=== PATIENT | male | born 1940 | race Caucasian/White ===

== ENCOUNTER → 2017-07-19 | Outpatient (CLI) | payer MEDICARE, OTHER ==
[~2017-07-19] MED LIST: ALBU90OI61 INH; ASPI81CH PO; ATOR40TA PO; Calcium Magnes1 EACH PO; DOCU100 PO; FISH1000 PO; FLUSAL1005 INH; FURO20 PO; LEVO750 PO; LISI20 PO; MAGAMI PO; METO25 PO; MULVIT PO; PANT20 PO; POTCHL20ER PO; PRED20 PO; ROBITUSSIN COU237 ML PO; TOCO400 PO; Tylophen500 MG PO; Vitamin C100 M1 PO; WARF5 PO
== END | disposition home or self-care (01) ==
LOC: PLD 13:25 → LAB SHORT 13:25
DX: D48.5 Neoplasm of uncertain behavior of skin (principal)
CPT/HCPCS: 88304

== ENCOUNTER 2017-12-30 22:32 | Observation (INO) | payer OTHER, MEDICARE ==
[~2017-12-30] VITALS: Ht 182.9 cm; Wt 77.4 kg
[~2017-12-30 22:32] MED LIST changes: -DOCU100 PO; -LEVO750 PO; -POTCHL20ER PO; -PRED20 PO; -ROBITUSSIN COU237 ML PO
[2017-12-30] MEDS ORDERED: POTCHL20ER PO (22:57)
[2017-12-30 23:31] LABS: BASOPHILS ABSOLUTE AUTO 0.04 K/mm3 (0.00-0.23); BASOPHILS PERCENT AUTO 0 % (0-2); EOSINOPHILS ABSOLUTE AUTO 0.02 K/mm3 (0.00-0.68); EOSINOPHILS PERCENT AUTO 0 % (0-6); Hematocrit 44.1 % (37.0-53.0); Hemoglobin 14.9 g/dL (13.5-17.5); IMMATURE GRAN ABSOLUTE AUTO 0.03 K/mm3 (0.00-0.10); IMMATURE GRAN PERCENT AUTO 0 % (0-1); LYMPHOCYTES ABSOLUTE AUTO 0.75 K/mm3 (0.84-5.20); LYMPHOCYTES PERCENT AUTO 5 % (21-46); MONOCYTES ABSOLUTE AUTO 0.95 K/mm3 (0.16-1.47); MONOCYTES PERCENT AUTO 6 % (4-13); Mean Corpuscular HGB 30.3 pg (26.0-34.0); Mean Corpuscular HGB Conc 33.8 g/dL (31.5-36.5); Mean Corpuscular Volume 90 fL (80-100); Mean Platelet Volume 10.1 fL (9.1-12.4); NEUTROPHILS ABSOLUTE AUTO 13.92 K/mm3 (1.96-9.15); NEUTROPHILS PERCENT AUTO 89 % (41-73); Platelet Count 261 K/mm3 (150-400); RDW Coefficient Variation 13.3 % (11.7-14.2); RDW Standard Deviation 43.5 fL (35.1-46.3); Red Blood Cell Count 4.91 M/mm3 (4.30-5.90); White Blood Cell Count 15.71 K/mm3 (4.00-11.30)
[2017-12-30 23:44] LABS: International Normalized Ratio 2.56
[2017-12-30 23:45] LABS: Anion Gap 10 mmol/L (6-16); Blood Urea Nitrogen 24 mg/dL (8-24); Bun/Creatinine Ratio 25.8 (12.0-20.0); CO2, Blood 21 mmol/L (21-32); Calcium, Blood 8.6 mg/dL (8.5-10.1); Chloride, Blood 108 mmol/L (98-108); Creatinine, Blood 0.93 mg/dL (0.60-1.20); Glomerular Filtration Rate >60 (60-); Glucose, Blood 111 mg/dL (70-99); Potassium, Blood 4.5 mmol/L (3.5-5.5); Sodium, Blood 139 mmol/L (136-145); Troponin I <0.015 ng/mL (0.000-0.040)
[2017-12-30 23:46] LABS: PCO2 Arterial 29.7 mmHg (35-45); PO2 Arterial 54.8 mmHg (80-100); pH Blood Arterial 7.47 (7.35-7.45)
[2017-12-31 01:43] LABS: International Normalized Ratio 2.54; Prothrombin Time Results 24.8 Sec (9.7-11.5)
[2017-12-31 03:46] LABS: Hematocrit 43.2 % (37.0-53.0); Hemoglobin 14.5 g/dL (13.5-17.5); Mean Corpuscular HGB 29.8 pg (26.0-34.0); Mean Corpuscular HGB Conc 33.6 g/dL (31.5-36.5); Mean Corpuscular Volume 89 fL (80-100); Mean Platelet Volume 10.1 fL (9.1-12.4); Platelet Count 247 K/mm3 (150-400); RDW Coefficient Variation 13.5 % (11.7-14.2); RDW Standard Deviation 43.6 fL (35.1-46.3); Red Blood Cell Count 4.86 M/mm3 (4.30-5.90); White Blood Cell Count 16.48 K/mm3 (4.00-11.30)
[2017-12-31 04:12] LABS: Alanine Aminotransfer (ALT/SGP 20 U/L (12-78); Albumin, Blood 3.6 g/dL (3.4-5.0); Albumin/Globulin Ratio 0.9 (0.8-1.8); Alk Phos 35 U/L (50-136); Anion Gap 9 mmol/L (6-16); Aspartate Aminotrans (AST/SGOT 22 U/L (12-37); Bilirubin, Total 1.7 mg/dL (0.1-1.0); Blood Urea Nitrogen 24 mg/dL (8-24); Bun/Creatinine Ratio 23.1 (12.0-20.0); CO2, Blood 24 mmol/L (21-32); Calcium, Blood 8.5 mg/dL (8.5-10.1); Chloride, Blood 106 mmol/L (98-108); Creatinine, Blood 1.04 mg/dL (0.60-1.20); Globulin, Blood 4.1 g/dL (2.2-4.0); Glomerular Filtration Rate >60 (60-); Glucose, Blood 122 mg/dL (70-99); Potassium, Blood 3.9 mmol/L (3.5-5.5); Sodium, Blood 139 mmol/L (136-145); Total Protein, Blood 7.7 g/dL (6.4-8.2)
[2018-01-01 04:01] LABS: International Normalized Ratio 1.61; Prothrombin Time Results 16.1 Sec (9.7-11.5)
[2018-01-01] MEDS ORDERED: ROBITUSSIN COU237 ML PO (11:12)
[2018-01-01] MEDS ORDERED: LEVO750 PO (11:13)
[2018-01-01] MEDS ORDERED: DOCU100 PO (11:14)
[2018-01-01] MEDS ORDERED: PRED20 PO (11:18)
== END 2018-01-01 11:50 | disposition home or self-care (01) ==
LOC: ER 22:32 → PCU 22:33 → ER 12-31 01:10 → PCU 12-31 01:10
PROVIDERS: Emergency Medicine; Internal Medicine
PROC: 5A09357 Assistance with Respiratory Ventilation, Less than 24 Consecutive Hours, Continuous Positive Airway Pressure (ICD-10-PCS; principal; 2017-12-31)
DX: J18.9 Pneumonia, unspecified organism (principal); J96.21 Acute and chronic respiratory failure with hypoxia; J44.0 Chronic obstructive pulmonary disease with (acute) lower respiratory infection; R04.2 Hemoptysis; R59.0 Localized enlarged lymph nodes; I48.91 Unspecified atrial fibrillation; I50.9 Heart failure, unspecified; Z79.899 Other long term (current) drug therapy; Z79.01 Long term (current) use of anticoagulants; Z95.3 Presence of xenogenic heart valve; Z79.51 Long term (current) use of inhaled steroids; Z87.891 Personal history of nicotine dependence; Z86.73 Personal history of transient ischemic attack (TIA), and cerebral infarction without residual deficits
CPT/HCPCS: 36415; 36600; 71045; 71260; 80048; 80053; 82803; 83605; 83880; 84145; 84484; 85025; 85027; 85610; 87040; 87070; 87205; 93005; 93010; 94640; 94762; 96361; 96374; 96375; 99285; C9113; G0378; J0696; J1940; J1956; J2543; J2930; J7030; Q9967

== ENCOUNTER 2018-01-08 15:54 | Emergency (ER) | payer MEDICARE, OTHER ==
[~2018-01-08 15:54] MED LIST changes: +DOCU100 PO; +LEVO750 PO; +POTCHL20ER PO; +PRED20 PO; +ROBITUSSIN COU237 ML PO
== END 2018-01-08 16:43 | disposition left against medical advice (07) ==
LOC: ER 15:54
DX: Z53.21 Procedure and treatment not carried out due to patient leaving prior to being seen by health care provider (principal)

== ENCOUNTER 2019-05-07 20:12 | Inpatient (IN) | payer MEDICARE, OTHER ==
[~2019-05-07] VITALS: Ht 182.9 cm; Wt 74.6 kg
[~2019-05-07 20:12] MED LIST changes: +Advair Hfa 115-12 GM INH; +Alph-E-Mixed400 UNIT PO; -FISH1000 PO; +Fish Oil Conc1000 MG PO; +MULTI VITAMIN1 EACH PO; -MULVIT PO; -TOCO400 PO
[2019-05-07 20:59] LABS: BASOPHILS ABSOLUTE AUTO 0.02 K/mm3 (0.00-0.23); BASOPHILS PERCENT AUTO 0 % (0-2); EOSINOPHILS ABSOLUTE AUTO 0.03 K/mm3 (0.00-0.68); EOSINOPHILS PERCENT AUTO 0 % (0-6); Hematocrit 46.2 % (37.0-53.0); Hemoglobin 15.4 g/dL (13.5-17.5); IMMATURE GRAN ABSOLUTE AUTO 0.04 K/mm3 (0.00-0.10); IMMATURE GRAN PERCENT AUTO 0 % (0-1); LYMPHOCYTES ABSOLUTE AUTO 0.81 K/mm3 (0.84-5.20); LYMPHOCYTES PERCENT AUTO 7 % (21-46); MONOCYTES ABSOLUTE AUTO 1.56 K/mm3 (0.16-1.47); MONOCYTES PERCENT AUTO 13 % (4-13); Mean Corpuscular HGB 30.2 pg (26.0-34.0); Mean Corpuscular HGB Conc 33.3 g/dL (31.5-36.5); Mean Corpuscular Volume 91 fL (80-100); Mean Platelet Volume 10.3 fL (9.1-12.4); NEUTROPHILS ABSOLUTE AUTO 10.01 K/mm3 (1.96-9.15); NEUTROPHILS PERCENT AUTO 80 % (41-73); Platelet Count 197 K/mm3 (150-400); RDW Coefficient Variation 13.2 % (11.7-14.2); White Blood Cell Count 12.47 K/mm3 (4.00-11.30)
[2019-05-07 21:12] LABS: Influenza A Negative (NEGATIVE); Influenza B Negative (NEGATIVE)
[2019-05-07 21:21] LABS: Alanine Aminotransfer (ALT/SGP 21 U/L (12-78); Albumin, Blood 3.4 g/dL (3.4-5.0); Albumin/Globulin Ratio 0.7 (0.8-1.8); Alk Phos 39 U/L (50-136); Anion Gap 9 mmol/L (6-16); Aspartate Aminotrans (AST/SGOT 24 U/L (12-37); Bilirubin, Total 0.9 mg/dL (0.1-1.0); Blood Urea Nitrogen 33 mg/dL (8-24); Bun/Creatinine Ratio 26.2 (12.0-20.0); CO2, Blood 22 mmol/L (21-32); Calcium, Blood 8.8 mg/dL (8.5-10.1); Chloride, Blood 107 mmol/L (98-108); Creatinine, Blood 1.26 mg/dL (0.60-1.20); Globulin, Blood 4.6 g/dL (2.2-4.0); Glomerular Filtration Rate 59 (60-); Glucose, Blood 143 mg/dL (70-99); Potassium, Blood 4.5 mmol/L (3.5-5.5); Sodium, Blood 138 mmol/L (136-145); Troponin I <0.015 ng/mL (0.000-0.040)
[2019-05-07] MEDS ORDERED: WARF1 PO (21:43)
[2019-05-07] MEDS ORDERED: FURO20 PO ×2 (21:45)
[2019-05-07] MEDS ORDERED: POTCHL20ER PO (21:46)
[2019-05-07 22:49] LABS: International Normalized Ratio 2.04; Prothrombin Time Results 20.3 Sec (9.7-11.5)
--- NOTE | 2019-05-08 05:05 | NUR ---
RECEIVED CALL FROM TELEMETRY STATING PATIENT HEART RATE TACHY 120S. OBSERVED PATIENT STANDING ON SIDE OF BED USING THE URINAL. PATIENT SHOB WITH LABORED BREATHING. AUSCULTATED LUNGS AND DISCOVERED THE PATIENT TO SOUND WET WITH EXP. WHEEZE. SPOKE TO RESPIRATORY THERAPY AND REQUESTED BREATHING TREATMENT. PATIENT THEN REQUIRED 15L O2 BIPAP FOR SPO2 OF 96%. CALLED RAPID RESPONSE. PATIENTS RESP RATE IN THE 50S. SPOKE TO DR AND RECEIVED ORDER FOR LASIX AND TO MOVE PATIENT TO ICU ON BIPAP. LASIX GIVEN AND PATIENT MOVED TO ICU. CALLED PATIENTS LAUREN AND UPDATED HER ON PATIENTS CHANGE IN STATUS AND MOVE TO ICU.
[2019-05-08 05:21] LABS: Hematocrit 45.4 % (37.0-53.0); Hemoglobin 14.8 g/dL (13.5-17.5); Mean Corpuscular HGB 30.1 pg (26.0-34.0); Mean Corpuscular HGB Conc 32.6 g/dL (31.5-36.5); Mean Corpuscular Volume 93 fL (80-100); Mean Platelet Volume 10.1 fL (9.1-12.4); Platelet Count 185 K/mm3 (150-400); RDW Coefficient Variation 13.4 % (11.7-14.2); RDW Standard Deviation 45.9 fL (35.1-46.3); Red Blood Cell Count 4.91 M/mm3 (4.30-5.90); White Blood Cell Count 12.82 K/mm3 (4.00-11.30)
[2019-05-08 05:36] LABS: Source, Urine Catheter
[2019-05-08 05:38] LABS: International Normalized Ratio 2.28; Prothrombin Time Results 22.4 Sec (9.7-11.5)
[2019-05-08 05:38] LABS: Appearance, Urine Clear (Clear); Bilirubin, Urine Neg (Neg); Blood, Urine 1+ (Neg); Color, Urine Yellow (P-Yellow); Glucose Qualitative, Urine Neg (Neg); Ketones, Urine Neg (Neg); Leukocyte Esterase, Urine Neg (Neg); Nitrite, Urine Neg (Neg); Protein, Urine Neg (Neg); Specific Gravity, Urine 1.015 (1.003-1.022); Urobilinogen, Urine NORM (Normal)
--- NOTE | 2019-05-08 05:41 | NUR ---
TRANSFER TO ICU PT ARRIVED TO ICU 13 VIA BED AT 0445 VIA MEDICAL FLOOR BED. PT ARRIVES AWAKE, ALERT, AND ORIENTED. PT ON BIPAP 10/5, FIO2 40%. PT RECIEVED LASIX 60 MG IV PRIOR TO ARRIVAL. DISLA PLACED AT THIS TIME PER ORDER. UA SENT. LARGE AMOUNT OF CLEAR YELLOW URINE NOTED. LS DIMINISHED IN BASES. PT DENIES SOB AT THIS TIME. VITAL SIGNS STABLE AT THIS TIME, HR 90-100'S. IV'S SALINE LOCKED. PT WITH DRIED STOOL NOTED TO BUTTOCKS UPON ARRIVAL. PT STATES NORMALLY CONTINENT OF STOOL AND URINE AT HOME. PT SPOUSE CALLED AND UPDATED OF PT TRANSFER TO ICU. WILL CONTINUE TO MONITOR AND REPORT OFF TO ONCOMING RN.
[2019-05-08 05:44] LABS: Bacteria Rare /hpf; Red Blood Cells, Urine 0-2 /hpf (0-2); Squamous Epithelial Cells Not Seen /hpf (Few); White Blood Cells, Urine 0-2 /hpf (0-5)
--- NOTE | 2019-05-08 07:05 | NUR ---
REPORT AND BEDSIDE ROUNDING WITH JAN CHUNG. ASSUMED PT CARE. PT LYING IN POSITION OF COMFORT. BIPAP IN PLACE, PT TOLERATING WELL. PT WAKES WHEN SPOKEN TO. DENIES PAIN OR IMMEDIATE NEEDS.
[2019-05-08 07:20] LABS: Anion Gap 7 mmol/L (6-16); Blood Urea Nitrogen 29 mg/dL (8-24); Bun/Creatinine Ratio 27.6 (12.0-20.0); CO2, Blood 23 mmol/L (21-32); Chloride, Blood 109 mmol/L (98-108); Creatinine, Blood 1.05 mg/dL (0.60-1.20); Glomerular Filtration Rate >60 (60-); Glucose, Blood 166 mg/dL (70-99); Potassium, Blood 4.6 mmol/L (3.5-5.5); Sodium, Blood 139 mmol/L (136-145)
[2019-05-08 07:21] LABS: Calcium, Blood 8.2 mg/dL (8.5-10.1)
--- NOTE | 2019-05-08 07:30 | NUR ---
PT PLACED ON 5L NC AT THIS TIME. RESP THERAPIST NOHELIA TO ROOM FOR NEB. PT DANIELA WELL.
[2019-05-08 07:55] LABS: Adenovirus Not Detected (NOT DETECT); Bordetella pertussis Not Detected (NOT DETECT); Chlamydophila pneumoniae Not Detected (NOT DETECT); Coronavirus 229E Not Detected (NOT DETECT); Coronavirus HKU1 Not Detected (NOT DETECT); Coronavirus NL63 Not Detected (NOT DETECT); Coronavirus OC43 Not Detected (NOT DETECT); Human Metapneumovirus Not Detected (NOT DETECT); Human Rhinovirus/Enterovirus Not Detected (NOT DETECT); Influenza A Not Detected (NOT DETECT); Influenza A/2009-H1 Not Detected (NOT DETECT); Influenza A/H1 Not Detected (NOT DETECT); Influenza A/H3 Not Detected (NOT DETECT); Influenza B Not Detected (NOT DETECT); Mycoplasma pneumoniae Not Detected (NOT DETECT); Parainfluenza Virus 1 Not Detected (NOT DETECT); Parainfluenza Virus 2 Not Detected (NOT DETECT); Parainfluenza Virus 3 Not Detected (NOT DETECT); Parainfluenza Virus 4 Not Detected (NOT DETECT); Respiratory Syncytial Virus Not Detected (NOT DETECT)
--- NOTE | 2019-05-08 08:00 | NUR ---
ASSESSMENT CHARTED. PT ABLE TO WALK TO AND FROM TOILET IN ROOM WITH MINIMAL ASSISTANCE. MEDIUM STOOL NOTED. PT SOB DURING ACTIVITY BY COMPENSATES APPROPRIATELY. PT BOOSTED UP IN BED. BREAKFAST PROVIDED. CALL LIGHT IN REACH. O2 SAT 94% ON 5L PER NC. PT ALERT AND ORIENTED. ABLE TO VOICE NEEDS.
--- NOTE | 2019-05-08 08:35 | NUR ---
[facility] STAFF TO ROOM FOR ECHO.
--- NOTE | 2019-05-08 09:20 | NUR ---
LISINOPRIL AND METOPROLOL DUE TO BP.
--- NOTE | 2019-05-08 09:35 | NUR ---
DR GASTON TO ROOM FOR EVAL AND ASSESSMENT. PLAN TO CONTINUE TO MONITOR AND ADJUST MEDS.
[2019-05-08 10:48] LABS: PCO2 Arterial 26.5 mmHg (35-45); PO2 Arterial 57.7 mmHg (80-100); pH Blood Arterial 7.52 (7.35-7.45)
--- NOTE | 2019-05-08 11:15 | NUR ---
Echocardiogram completed.
--- NOTE | 2019-05-08 11:45 | NUR ---
UPDATE VSS. PT TOLERATING O2 PER NC AT 5L. PT HAS NO COMPLAINTS OF SOB WHILE SITTING. LUNCH PROVIDED. VISITOR AT BEDSIDE.
--- NOTE | 2019-05-08 13:27 | NUR ---
PT PROVIDED WITH COFFEE PER REQUEST. PT ATE 90% LUNCH. AT BEDSIDE. DISCUSSED POSSIBLE STATUS CHANGE WITH DR GASTON. PER PROVIDER NOT READY TO MOVE OUT OF ICU. CHARGE NURSE AWARE.
--- NOTE | 2019-05-08 14:45 | NUR ---
PT MOVED TO ICU 3. ALL BELONGINGS WITH PT.
--- NOTE | 2019-05-08 14:50 | NUR ---
RESP THERAPIST TO ROOM FOR NEB TREATMENT.
--- NOTE | 2019-05-08 15:49 | NUR ---
PT MEDICATED WITH ORDERED CEPACOL LOZENGE. PT HAS VISITORS. HAS NO OTHER COMPLAINTS.
--- NOTE | 2019-05-08 16:30 | NUR ---
SPUTUM COLLECTED AND SENT TO LAB.
--- NOTE | 2019-05-08 17:06 | NUR ---
DINNER TRAY PROVIDED. CALL LIGHT IN REACH. PT DENIES NEEDS.
--- NOTE | 2019-05-08 18:13 | NUR ---
SUMMARY PT REMAINED ALERT AND ORIENTED THROUGHOUT SHIFT. LUNG SOUNDS CONTINUE TO BE DIMINISHED TO BASES. PT TOLERATED NC O2 THROUGHOUT SHIFT. NO C/O SOB OR CP. PT ABLE TO COMMUNICATE NEEDS AND USES CALL LIGHT APPROPRIATELY. HAS VISITED AND PLANS TO BRING PT CPAP AND HOME INHALERS. BOWEL SOUNDS PRESENT AND EQUAL, NO ABD PAIN/TENDERNESS. BM TODAY. URINE OUTPUT PER DISLA. PT TOLERATING PO.
--- NOTE | 2019-05-08 19:15 | NUR ---
ASSUMED PT CARE FROM SHELDON HARVEY PT SITTING UP IN BED HAVING CONVERSATION WITH . PT NOTED TO BE ALERT AND ORIENTED; ABLE TO MAKE NEEDS KNOWN. REQUESTED THAT HE BRUSH HIS TEETH; SET UP WITH SUPPLIES. PT PLEASANT AND COOPERATIVE; CALL LIGHT LEFT WITHIN REACH.
[2019-05-09 03:28] LABS: Hematocrit 39.7 % (37.0-53.0); Hemoglobin 13.3 g/dL (13.5-17.5); Mean Corpuscular HGB 30.4 pg (26.0-34.0); Mean Corpuscular Volume 91 fL (80-100); Red Blood Cell Count 4.38 M/mm3 (4.30-5.90); White Blood Cell Count 10.52 K/mm3 (4.00-11.30)
[2019-05-09 03:29] LABS: BASOPHILS ABSOLUTE AUTO 0.03 K/mm3 (0.00-0.23); BASOPHILS PERCENT AUTO 0 % (0-2); EOSINOPHILS PERCENT AUTO 0 % (0-6); IMMATURE GRAN ABSOLUTE AUTO 0.03 K/mm3 (0.00-0.10); IMMATURE GRAN PERCENT AUTO 0 % (0-1); LYMPHOCYTES ABSOLUTE AUTO 0.73 K/mm3 (0.84-5.20); LYMPHOCYTES PERCENT AUTO 7 % (21-46); MONOCYTES PERCENT AUTO 12 % (4-13); Mean Corpuscular HGB Conc 33.5 g/dL (31.5-36.5); Mean Platelet Volume 10.4 fL (9.1-12.4); NEUTROPHILS ABSOLUTE AUTO 8.43 K/mm3 (1.96-9.15); NEUTROPHILS PERCENT AUTO 80 % (41-73); Platelet Count 176 K/mm3 (150-400); RDW Coefficient Variation 13.4 % (11.7-14.2)
[2019-05-09 03:42] LABS: International Normalized Ratio 2.57
[2019-05-09 03:44] LABS: Albumin, Blood 2.7 g/dL (3.4-5.0); Anion Gap 9 mmol/L (6-16); Blood Urea Nitrogen 23 mg/dL (8-24); Bun/Creatinine Ratio 22.1 (12.0-20.0); CO2, Blood 23 mmol/L (21-32); Chloride, Blood 107 mmol/L (98-108); Creatinine, Blood 1.04 mg/dL (0.60-1.20); Glomerular Filtration Rate >60 (60-); Glucose, Blood 143 mg/dL (70-99); Phosphorus, Blood 2.5 mg/dL (2.5-4.9); Potassium, Blood 3.8 mmol/L (3.5-5.5); Sodium, Blood 139 mmol/L (136-145)
--- NOTE | 2019-05-09 07:23 | NUR ---
END OF SHIFT SUMMARY PT HAS REMAINED ALERT AND ORIENTED T/O SHIFT; ABLE TO MAKE NEEDS KNOWN. LUNG SOUNDS REMAIN DIMINISHED T/O. SMALL AMOUNTS OF CLEAR SPUTUM WITH FAINT AMOUNT OF PINK TINGED SPUTUM NOTED. PT HAS BEEN NSR WITH PVC'S AND HAD ONE NON-SUSTAINED EPISODE OF AFIB. HR 80-90'S WHEN RESTING, BUT CAN GET UP TO 115'S WITH EXERTION. PT NOTED TO BE SOB WITH MINIMAL EXERTION; REQUIRED 4-5L OXYGEN VIA NC. HOME BIPAP WHILE SLEEPING WITH 4L BLEED IN; BIOX REMAINED GREATER THAN 91%. CALL LIGHT LEFT WITHIN REACH; REPORT HANDED OFF TO SHELDON SHAH.
--- NOTE | 2019-05-09 09:59 | NUR ---
CARE ASSUMED ASSESSMENT COMPLETED, LABS DRAWN. PT RESTING IN BED, PLEASANT AND COOPERATIVE, ORIENTED X4, VSS AT THIS TIME. SPO2 94% ON 4L/NC, PT DENIES SOB AT REST, STATES HE IS EXPECTORATING YELLOW AND PINK TINGED SPUTUM. LS CLEAR, DIM IN BASES, URINE OUTPUT GOOD, NO PERIPHERAL EDEMA NOTED. HRR AT THIS TIME, OCCASIONAL PVC'S NOTED, PT DENIES CHEST PAIN/PRESSURE. BREAKFAST AND PO MEDICATIONS TOLERATED WELL. DR. GASTON IN TO SEE PT.
--- NOTE | 2019-05-09 10:47 | NUR ---
PT UP TO BR FOR BM, THEN TO XRAY VIA WC WITH STAFF ASSISTANCE, TOLERATED WELL, SPO2 MAINTAINED >90% ON 4L/NC. PT TACHYPNEIC AND SOB WITH EXERTION, RECOVERS QUICKLY WITH REST. PT BACK IN BED, DENIES C/O, TALKING ON PHONE WITH . VSS.
--- NOTE | 2019-05-09 16:01 | NUR ---
PT TOLERATED MEALS WELL, HAD GOOD URINARY OUTPUT THIS SHIFT WITH LASIX. VSS T/O DAY, PT AFEBRILE, BP'S STABLE. LS CLEAR, DIM IN BASES, SPO2 >90% ON 3L/NC, PT DENIES SOB AT REST, NO PERIPHERAL EDEMA NOTED. PT TOLERATING ABX WITHOUT DIFFICULTY, DENIES PAIN, REMAINS PLEASANT AND COOPERATIVE WITH CARE, ORIENTED X4. AT BEDSIDE, REPORT GIVEN TO SHELDON OREILLY, PT TO MEDICAL FLOOR ROOM 360 WITH BELONGINGS AND MEDICATIONS AT 1600.
--- NOTE | 2019-05-09 18:06 | NUR ---
PT. SITTING IN BED EATING DINNER. CPAP AND CONT BIOX HAVE BEEN SET UP BY R.T. TELEMETRY PLACED AND PT IN AFIB BETWEEN 73-77. DENIES PAIN OR NAUSEA BUT IS NOTEABLEY SOB WITH EXERTION AND AT REST. EATING WELL.
--- NOTE | 2019-05-10 04:41 | NUR ---
SHIFT SUMMARY A/O, ABLE TO MAKE NEEDS KNOWN. COOPERATIVE WITH CARE. CALLS AND ANSWERS QUESTIONS APPROPRIATELY. NO C/O PAIN/DISCOMFORT OVERNIGHT. REMAINS ON 3L NC WITH SATURATIONS BETWEEN 89-93% ON CONTINUOUS BIOX. LS DIM TO UPPER LEACH AND CRACKLES @ BASES. DIURESING DURING THE DAY WITH A DISLA FOR STRICT I/O's. DISLA IS PATENT AND DRAINING TO GRAVITY. TELE RUNNING NSR IN THE 60's PER PCU SWITCH REPAIRER. APPEARED TO REST OVERNIGHT. NO ACUTE CHANGES NOTED. VSS/AFEBRILE. BED IN LOWEST POSITION. CALL LIGHT AND BELONGINGS WITHIN REACH. WCTM. REPORT TO ONCELSY RN.
[2019-05-10 08:24] LABS: BASOPHILS ABSOLUTE AUTO 0.03 K/mm3 (0.00-0.23); BASOPHILS PERCENT AUTO 0 % (0-2); EOSINOPHILS PERCENT AUTO 2 % (0-6); Hematocrit 42.3 % (37.0-53.0); Hemoglobin 14.1 g/dL (13.5-17.5); IMMATURE GRAN ABSOLUTE AUTO 0.03 K/mm3 (0.00-0.10); IMMATURE GRAN PERCENT AUTO 0 % (0-1); LYMPHOCYTES ABSOLUTE AUTO 0.92 K/mm3 (0.84-5.20); LYMPHOCYTES PERCENT AUTO 10 % (21-46); MONOCYTES ABSOLUTE AUTO 0.85 K/mm3 (0.16-1.47); MONOCYTES PERCENT AUTO 9 % (4-13); Mean Corpuscular HGB 29.9 pg (26.0-34.0); Mean Corpuscular HGB Conc 33.3 g/dL (31.5-36.5); Mean Corpuscular Volume 90 fL (80-100); Mean Platelet Volume 10.8 fL (9.1-12.4); NEUTROPHILS ABSOLUTE AUTO 7.41 K/mm3 (1.96-9.15); NEUTROPHILS PERCENT AUTO 79 % (41-73); Platelet Count 205 K/mm3 (150-400); RDW Coefficient Variation 13.3 % (11.7-14.2); Red Blood Cell Count 4.71 M/mm3 (4.30-5.90); White Blood Cell Count 9.44 K/mm3 (4.00-11.30)
[2019-05-10 08:45] LABS: Albumin, Blood 2.8 g/dL (3.4-5.0); Anion Gap 8 mmol/L (6-16); Blood Urea Nitrogen 25 mg/dL (8-24); CO2, Blood 26 mmol/L (21-32); Calcium, Blood 8.7 mg/dL (8.5-10.1); Chloride, Blood 103 mmol/L (98-108); Creatinine, Blood 1.04 mg/dL (0.60-1.20); Glomerular Filtration Rate >60 (60-); Glucose, Blood 99 mg/dL (70-99); International Normalized Ratio 3.93; Phosphorus, Blood 2.7 mg/dL (2.5-4.9); Potassium, Blood 3.4 mmol/L (3.5-5.5); Prothrombin Time Results 36.8 Sec (9.7-11.5); Sodium, Blood 137 mmol/L (136-145)
--- NOTE | 2019-05-10 17:06 | NUR ---
SHIFT SUMMARY PATIENT PLEASANT. ALERT AND ORIENTED. INDEPENDENT IN THE ROOM. CALLS APPROPRIATELY. NOT A FALL RISK. PATIENT HAS SEEN PHYSICAL THERAPY AND OCCUPATIONAL THERAPY PER DOCTORS ORDER TODAY. PATIENT STATES THAT HE IS ON HIS HOME O2 REGIMEN. HE STATES HE USES 1-2L VIA NC FOR ACTIVITY AND HAS PORTABLE TANKS WELL BUT DENIES BLEED INTO HIS CPAP AT HOME. CURRENTLY PLEASANT, AWAITING HIS LAB RESULTS TOMORROW AND POTENTIAL DISCHARGE TOMORROW OR THE NEXT DAY.
[2019-05-11 04:30] LABS: Hematocrit 40.4 % (37.0-53.0); Hemoglobin 13.5 g/dL (13.5-17.5); Mean Corpuscular HGB 29.7 pg (26.0-34.0); Mean Corpuscular HGB Conc 33.4 g/dL (31.5-36.5); Mean Corpuscular Volume 89 fL (80-100); Mean Platelet Volume 10.1 fL (9.1-12.4); Platelet Count 230 K/mm3 (150-400); RDW Coefficient Variation 13.3 % (11.7-14.2); RDW Standard Deviation 43.8 fL (35.1-46.3); Red Blood Cell Count 4.55 M/mm3 (4.30-5.90); White Blood Cell Count 9.99 K/mm3 (4.00-11.30)
[2019-05-11 04:48] LABS: Albumin, Blood 2.7 g/dL (3.4-5.0); Anion Gap 8 mmol/L (6-16); Blood Urea Nitrogen 32 mg/dL (8-24); Bun/Creatinine Ratio 29.4 (12.0-20.0); CO2, Blood 25 mmol/L (21-32); Calcium, Blood 8.5 mg/dL (8.5-10.1); Chloride, Blood 104 mmol/L (98-108); Creatinine, Blood 1.09 mg/dL (0.60-1.20); Glomerular Filtration Rate >60 (60-); Glucose, Blood 108 mg/dL (70-99); Phosphorus, Blood 3.2 mg/dL (2.5-4.9); Potassium, Blood 3.6 mmol/L (3.5-5.5); Sodium, Blood 137 mmol/L (136-145)
[2019-05-11 04:51] LABS: Prothrombin Time Results 39.8 Sec (9.7-11.5)
[2019-05-11 05:00] LABS: International Normalized Ratio 4.29
--- NOTE | 2019-05-11 05:06 | NUR ---
SHIFT SUMMARY: A/OX3. SPOUSE AT BEDSIDE DURING THE FIRST PART OF THE NIGHT. MAKING NEEDS KNOWN. T/F INDEPENDENTLY IN ROOM BUT 1 ASSIST HELPS WITH CHORDS AND LINES. FC PATENT AND DRAINING CLEAR, DARK STRAW COLORED URINE. PT REPORTS 1 SMALL LOOSE STOOL DURING THE NIGHT. DENIES PAIN. VSS. 02 90-91% ON 3L. LUNG SOUNDS CLEAR UPPER LOBES AND DIM LOWER LOBES. PT REPORTS COUGH PRODUCING LESS SPUTUM. SPUTUM UNOBSERVED. BED LOW, CALL LIGHT IN REACH.
--- NOTE | 2019-05-11 18:35 | NUR ---
SHIFT SUMMARY PATIENT IS PLEASANT, ALERT AND ORIENTED. INDEPENDENT IN THE ROOM. DISLA TO BE DISCONTINUED.
--- NOTE | 2019-05-12 04:15 | NUR ---
SHIFT SUMMARY: A/OX3. PLEASANT AND COOPERATIVE. COMMUNICATES NEEDS. UP INDEPENDENTLY IN ROOM. USING URINAL FOR VOIDS. DENIES ANY DIFFICULTY WITH URINATION OR FEELING HIS IS NOT COMPLETELY EMPTYING HIS BLADDER AFTER VOIDS. URINE APPEARS EDEN COLORED AND CLEAR. LS CLEAR EXCEPT FINE INSPIRATORY CRACKLES IN R LOWER LOBE. CONT ON 3L 02. DYSPNEA WITH EXERTION- RESP RATE INCREASES, HOWEVER, PT DENIES FEELING SOB. RESPS RETURN TO REGULAR AND NON-LABORED QUICKLY WITH REST. SATS BETWEEN 90-94% WHILE PT RESTING QUIETLY IN BED. INFREQUENT COUGH- NON-PRODUCTIVE. WEARING CPAP INTERMITTENTLY THROUGH THE NIGHT. DENIES PAIN. CALL LIGHT IN REACH, BED LOW. NON-SKID SOCKS ON.
[2019-05-12 04:48] LABS: International Normalized Ratio 3.38; Prothrombin Time Results 32.1 Sec (9.7-11.5)
[2019-05-12] MEDS ORDERED: FURO40 PO (10:05)
[2019-05-12] MEDS ORDERED: CEPACOL SORE T1 EACH MM (10:07)
[2019-05-12] MEDS ORDERED: Culturelle1 CAP PO (10:07)
[2019-05-12] MEDS ORDERED: ALBU2.5V5 INH (10:07)
[2019-05-12] MEDS ORDERED: LEVO750 PO (10:08)
[2019-05-12] MEDS ORDERED: SENN187 PO (10:08)
--- NOTE | 2019-05-12 13:26 | NUR ---
DISCHARGE SUMMARY PATIENT IS PLEASANT, ALL INFORMATION GIVEN TO THE AND THE PATIENT. AT THIS TIME PATIENT IS ALERT AND ORIENTED. HE WAS WHEELED OUT BY THE FIRE PREVENTION INSPECTOR. HIS IV WAS REMOVED.
== END 2019-05-12 13:15 | disposition home or self-care (01) | DRG 871 ==
LOC: ER 20:12 → MEDS 22:30 → ICUW 05-08 05:10 → ICUE 05-08 14:44 → MEDS 05-09 15:56 → ENPENDDIS 05-12 08:51 → MEDS 05-12 13:15
PROVIDERS: Internal Medicine; Nurse Practitioner Acute Care; Pharmacist; Physician Assistant; ADMIT Internal Medicine
DX: A41.9 Sepsis, unspecified organism (principal); J18.9 Pneumonia, unspecified organism; J96.21 Acute and chronic respiratory failure with hypoxia; I50.33 Acute on chronic diastolic (congestive) heart failure; J44.0 Chronic obstructive pulmonary disease with (acute) lower respiratory infection; N17.9 Acute kidney failure, unspecified; I13.0 Hypertensive heart and chronic kidney disease with heart failure and stage 1 through stage 4 chronic kidney disease, or unspecified chronic kidney disease; J44.1 Chronic obstructive pulmonary disease with (acute) exacerbation; R65.20 Severe sepsis without septic shock; G47.33 Obstructive sleep apnea (adult) (pediatric); I48.0 Paroxysmal atrial fibrillation; I25.10 Atherosclerotic heart disease of native coronary artery without angina pectoris; I27.20 Pulmonary hypertension, unspecified; N18.3 Chronic kidney disease, stage 3 (moderate); K21.9 Gastro-esophageal reflux disease without esophagitis; Z95.2 Presence of prosthetic heart valve; Z99.81 Dependence on supplemental oxygen; Z95.1 Presence of aortocoronary bypass graft; Z95.5 Presence of coronary angioplasty implant and graft; Z86.73 Personal history of transient ischemic attack (TIA), and cerebral infarction without residual deficits; Z87.891 Personal history of nicotine dependence; Z79.01 Long term (current) use of anticoagulants; Z79.51 Long term (current) use of inhaled steroids; Z79.899 Other long term (current) drug therapy
CPT/HCPCS: 0099U; 36415; 36600; 71045; 71046; 80048; 80053; 80069; 80202; 81001; 82803; 83605; 83735; 83880; 84145; 84484; 85025; 85027; 85610; 87040; 87070; 87205; 87804; 93005; 93010; 93306; 94640; 94660; 94760; 94761; 94762; 96365; 97116; 97161; 97165; 97530; 99285-25; C9113; J0456; J0696; J1940; J1956; J2543; J3370; J7030; J7040; J7050

== ENCOUNTER → 2019-09-24 | Outpatient (CLI) | payer MEDICARE, OTHER ==
[~2019-09-24] MED LIST changes: +ALBU2.5V5 INH; +CEPACOL SORE T1 EACH MM; +Culturelle1 CAP PO; +FURO40 PO; +SENN187 PO; +WARF1 PO
== END ==
LOC: LAB 08:15 → LAB SHORT 08:15 → LAB FUT 09-18 15:05
PROVIDERS: Internal Medicine
DX: D35.02 Benign neoplasm of left adrenal gland (principal); I48.20 Chronic atrial fibrillation, unspecified; Z79.899 Other long term (current) drug therapy
CPT/HCPCS: 81050

== ENCOUNTER 2020-09-20 21:37 | Emergency (ER) | payer MEDICARE, OTHER ==
[~2020-09-20] VITALS: Ht 180.3 cm; Wt 79.8 kg
[2020-09-20 22:28] LABS: BASOPHILS ABSOLUTE AUTO 0.07 K/mm3 (0.00-0.23); BASOPHILS PERCENT AUTO 1 % (0-2); EOSINOPHILS ABSOLUTE AUTO 0.15 K/mm3 (0.00-0.68); EOSINOPHILS PERCENT AUTO 2 % (0-6); Hematocrit 51.1 % (37.0-53.0); IMMATURE GRAN ABSOLUTE AUTO 0.03 K/mm3 (0.00-0.10); IMMATURE GRAN PERCENT AUTO 0 % (0-1); LYMPHOCYTES ABSOLUTE AUTO 1.54 K/mm3 (0.84-5.20); LYMPHOCYTES PERCENT AUTO 16 % (21-46); MONOCYTES ABSOLUTE AUTO 1.03 K/mm3 (0.16-1.47); MONOCYTES PERCENT AUTO 11 % (4-13); Mean Corpuscular HGB 30.3 pg (26.0-34.0); Mean Corpuscular HGB Conc 33.3 g/dL (31.5-36.5); Mean Corpuscular Volume 91 fL (80-100); Mean Platelet Volume 9.3 fL (9.1-12.4); NEUTROPHILS ABSOLUTE AUTO 6.63 K/mm3 (1.96-9.15); NEUTROPHILS PERCENT AUTO 70 % (41-73); Platelet Count 254 K/mm3 (150-400); RDW Coefficient Variation 13.2 % (11.7-14.2); RDW Standard Deviation 44.3 fL (35.1-46.3); Red Blood Cell Count 5.61 M/mm3 (4.30-5.90); White Blood Cell Count 9.45 K/mm3 (4.00-11.30)
[2020-09-20 22:41] LABS: International Normalized Ratio 3.83
[2020-09-20 22:46] LABS: Alanine Aminotransfer (ALT/SGP 49 U/L (12-78); Albumin, Blood 3.6 g/dL (3.4-5.0); Albumin/Globulin Ratio 0.8 (0.8-1.8); Alk Phos 50 U/L (50-136); Anion Gap 5 mmol/L (6-16); Aspartate Aminotrans (AST/SGOT 44 U/L (12-37); Bilirubin, Total 0.7 mg/dL (0.1-1.0); Blood Urea Nitrogen 25 mg/dL (8-24); Bun/Creatinine Ratio 20.8 (12.0-20.0); CO2, Blood 27 mmol/L (21-32); Chloride, Blood 107 mmol/L (98-108); Globulin, Blood 4.6 g/dL (2.2-4.0); Glomerular Filtration Rate >60 (60-); Glucose, Blood 89 mg/dL (70-99); Sodium, Blood 139 mmol/L (136-145); Total Protein, Blood 8.2 g/dL (6.4-8.2)
== END 2020-09-20 23:55 | disposition home or self-care (01) ==
LOC: ER 21:37
PROVIDERS: Physician Assistant
DX: R04.0 Epistaxis (principal); I48.0 Paroxysmal atrial fibrillation; J44.9 Chronic obstructive pulmonary disease, unspecified; I25.810 Atherosclerosis of coronary artery bypass graft(s) without angina pectoris; Z95.1 Presence of aortocoronary bypass graft; Z79.01 Long term (current) use of anticoagulants; Z79.899 Other long term (current) drug therapy
CPT/HCPCS: 36415; 80053; 85025; 85610; 93005; 93010; 99283-25; A9270

== ENCOUNTER 2020-09-24 16:56 | Emergency (ER) | payer MEDICARE, OTHER ==
[~2020-09-24] VITALS: Ht 180.3 cm; Wt 79.4 kg
[2020-09-24 17:24] LABS: BASOPHILS ABSOLUTE AUTO 0.07 K/mm3 (0.00-0.23); BASOPHILS PERCENT AUTO 1 % (0-2); EOSINOPHILS ABSOLUTE AUTO 0.13 K/mm3 (0.00-0.68); EOSINOPHILS PERCENT AUTO 1 % (0-6); Hematocrit 51.3 % (37.0-53.0); Hemoglobin 17.1 g/dL (13.5-17.5); IMMATURE GRAN ABSOLUTE AUTO 0.03 K/mm3 (0.00-0.10); IMMATURE GRAN PERCENT AUTO 0 % (0-1); LYMPHOCYTES PERCENT AUTO 14 % (21-46); MONOCYTES ABSOLUTE AUTO 0.88 K/mm3 (0.16-1.47); MONOCYTES PERCENT AUTO 9 % (4-13); Mean Corpuscular HGB 30.4 pg (26.0-34.0); Mean Corpuscular HGB Conc 33.3 g/dL (31.5-36.5); Mean Corpuscular Volume 91 fL (80-100); Mean Platelet Volume 9.4 fL (9.1-12.4); NEUTROPHILS ABSOLUTE AUTO 7.22 K/mm3 (1.96-9.15); NEUTROPHILS PERCENT AUTO 75 % (41-73); Platelet Count 268 K/mm3 (150-400); RDW Coefficient Variation 13.2 % (11.7-14.2); Red Blood Cell Count 5.63 M/mm3 (4.30-5.90); White Blood Cell Count 9.63 K/mm3 (4.00-11.30)
[2020-09-24 17:38] LABS: International Normalized Ratio 2.45; Prothrombin Time Results 24.9 Sec (9.7-11.5)
[2020-09-24 17:46] LABS: Alanine Aminotransfer (ALT/SGP 49 U/L (12-78); Albumin, Blood 3.9 g/dL (3.4-5.0); Albumin/Globulin Ratio 0.8 (0.8-1.8); Alk Phos 52 U/L (50-136); Anion Gap 6 mmol/L (6-16); Aspartate Aminotrans (AST/SGOT 41 U/L (12-37); Bilirubin, Total 0.8 mg/dL (0.1-1.0); Blood Urea Nitrogen 26 mg/dL (8-24); Bun/Creatinine Ratio 24.1 (12.0-20.0); CO2, Blood 25 mmol/L (21-32); Calcium, Blood 9.2 mg/dL (8.5-10.1); Chloride, Blood 108 mmol/L (98-108); Creatinine, Blood 1.08 mg/dL (0.60-1.20); Globulin, Blood 4.6 g/dL (2.2-4.0); Glomerular Filtration Rate >60 (60-); Glucose, Blood 109 mg/dL (70-99); Sodium, Blood 139 mmol/L (136-145); Total Protein, Blood 8.5 g/dL (6.4-8.2); Troponin I <0.015 ng/mL (0.000-0.040)
== END 2020-09-24 20:25 | disposition home or self-care (01) ==
LOC: ER 16:56
PROVIDERS: Physician Assistant
DX: I48.91 Unspecified atrial fibrillation (principal); J44.9 Chronic obstructive pulmonary disease, unspecified; Z95.1 Presence of aortocoronary bypass graft; Z79.01 Long term (current) use of anticoagulants; Z79.899 Other long term (current) drug therapy; Z87.891 Personal history of nicotine dependence
CPT/HCPCS: 36415; 71046; 80053; 83735; 84484; 85025; 85610; 93005; 93010; 96374; 99285-25; J1940

== ENCOUNTER 2020-10-31 20:04 | Emergency (ER) | payer MEDICARE, OTHER ==
[~2020-10-31] VITALS: Ht 180.3 cm; Wt 79.8 kg
[2020-10-31 20:39] LABS: BASOPHILS ABSOLUTE AUTO 0.05 K/mm3 (0.00-0.23); BASOPHILS PERCENT AUTO 1 % (0-2); EOSINOPHILS ABSOLUTE AUTO 0.13 K/mm3 (0.00-0.68); EOSINOPHILS PERCENT AUTO 1 % (0-6); Hematocrit 49.4 % (37.0-53.0); Hemoglobin 16.5 g/dL (13.5-17.5); IMMATURE GRAN ABSOLUTE AUTO 0.04 K/mm3 (0.00-0.10); IMMATURE GRAN PERCENT AUTO 0 % (0-1); LYMPHOCYTES ABSOLUTE AUTO 1.41 K/mm3 (0.84-5.20); LYMPHOCYTES PERCENT AUTO 14 % (21-46); MONOCYTES ABSOLUTE AUTO 0.86 K/mm3 (0.16-1.47); MONOCYTES PERCENT AUTO 8 % (4-13); Mean Corpuscular HGB Conc 33.4 g/dL (31.5-36.5); Mean Corpuscular Volume 90 fL (80-100); Mean Platelet Volume 9.4 fL (9.1-12.4); NEUTROPHILS ABSOLUTE AUTO 7.71 K/mm3 (1.96-9.15); NEUTROPHILS PERCENT AUTO 76 % (41-73); Platelet Count 238 K/mm3 (150-400); RDW Standard Deviation 42.4 fL (35.1-46.3)
[2020-10-31 20:54] LABS: International Normalized Ratio 2.28; Prothrombin Time Results 23.5 Sec (9.7-11.5)
[2020-10-31 20:55] LABS: Albumin, Blood 3.6 g/dL (3.4-5.0); Albumin/Globulin Ratio 0.8 (0.8-1.8); Bilirubin, Total 0.8 mg/dL (0.1-1.0); Bun/Creatinine Ratio 23.9 (12.0-20.0); Creatinine, Blood 1.34 mg/dL (0.60-1.20); Globulin, Blood 4.7 g/dL (2.2-4.0); Potassium, Blood 4.8 mmol/L (3.5-5.5); Total Protein, Blood 8.3 g/dL (6.4-8.2)
[2020-10-31] MEDS ORDERED: ASPI81CH PO (21:52)
== END 2020-10-31 23:05 | disposition home or self-care (01) ==
LOC: ER 20:04
PROVIDERS: Physician Assistant
DX: R04.0 Epistaxis (principal); Z79.82 Long term (current) use of aspirin; Z79.01 Long term (current) use of anticoagulants
CPT/HCPCS: 36415; 80053; 85025; 85610; 93005; 93010; 99283-25

== ENCOUNTER 2021-02-11 12:31 | Day surgery (SDC) | payer MEDICARE, OTHER ==
[~2021-02-11] VITALS: Ht 180.3 cm; Wt 80.0 kg
[2021-02-11] MEDS ORDERED: ALBU90OI6 (12:47)
[2021-02-11] MEDS ORDERED: Furosemide40 MG (12:47)
[2021-02-11] MEDS ORDERED: CALCIUM 600 +1 EAC7 (12:48)
[2021-02-11] MEDS ORDERED: CENTRUM SILVER1 EAC2 (12:48)
[2021-02-11] MEDS ORDERED: FISH OIL 1,2001 EAC7 (12:48)
== END 2021-02-11 14:07 | disposition home or self-care (01) ==
LOC: ORSCSDS 12:31
PROVIDERS: Student in an Organized Health Care Education/Training Program
PROC: 0DB68ZX Excision of Stomach, Via Natural or Artificial Opening Endoscopic, Diagnostic (ICD-10-PCS; principal; 2021-02-11 13:45)
PROC: 0DB58ZX Excision of Esophagus, Via Natural or Artificial Opening Endoscopic, Diagnostic (ICD-10-PCS; principal; 2021-02-11 13:45)
DX: R93.89 Abnormal findings on diagnostic imaging of other specified body structures (principal); R13.10 Dysphagia, unspecified; K22.70 Barrett's esophagus without dysplasia; K31.7 Polyp of stomach and duodenum; I10 Essential (primary) hypertension; J44.9 Chronic obstructive pulmonary disease, unspecified; G47.33 Obstructive sleep apnea (adult) (pediatric); Z99.81 Dependence on supplemental oxygen; Z87.891 Personal history of nicotine dependence; Z79.01 Long term (current) use of anticoagulants; Z79.899 Other long term (current) drug therapy
CPT/HCPCS: 88305; 88342; J2001; J2704; J7120

== ENCOUNTER → 2022-06-27 | Outpatient (CLI) | payer MEDICARE, OTHER ==
[~2022-06-27] MED LIST changes: +ALBU90OI6; +CALCIUM 600 +1 EAC7; +CENTRUM SILVER1 EAC2; +FISH OIL 1,2001 EAC7; +Furosemide40 MG
== END | disposition home or self-care (01) ==
LOC: PLD 09:48 → LAB SHORT 09:48
DX: D17.1 Benign lipomatous neoplasm of skin and subcutaneous tissue of trunk (principal)
CPT/HCPCS: 88304